=== PATIENT | male | born 1990 | race Two or more races ===

== ENCOUNTER 2016-11-25 16:30 | Emergency (ER) | payer OTHER ==
--- NOTE | 2016-11-25 16:44 | ER Document Report ---
ED Medical Screen (RME) - General Stated Complaint: POSSIBLE STD Time seen by provider: 16:42 Mode of Arrival: Ambulatory Information source: Patient Notes: 26-year-old male presents to ED for STD check. States his partner techs to him today stated she was tested positive for chlamydia and was treated so he came in to be tested and treated. I have greeted and performed a rapid initial assessment of this patient. A comprehensive ED assessment and evaluation of the patient, analysis of test results and completion of medical decision making process will be conducted by an additional ED providers. TRAVEL OUTSIDE OF THE [place] IN LAST 30 DAYS: No - Related Data Allergies/Adverse Reactions: No Known Allergies Allergy (Verified 09/19/14 23:47) Past Medical History - Immunizations Hx Diphtheria, Pertussis, Tetanus Vaccination: Yes
[2016-11-25 17:14] LABS: APPEARANCE,URINE CLEAR; BILIRUBIN,URINE NEGATIVE (NEGATIVE); GLUCOSE, URINE NEGATIVE (NEGATIVE); KETONES,URINE NEGATIVE (NEGATIVE); LEUKOCYTE ESTERASE,URINE NEGATIVE (NEGATIVE); NITRITE,URINE NEGATIVE (NEGATIVE); PROTEIN,URINE NEGATIVE (NEGATIVE); URINE SPECIFIC GRAVITY 1.005; UROBILINOGEN,URINE NEGATIVE mg/dL (<2.0)
--- NOTE | 2016-11-25 18:09 | ER Document Report ---
ED General - General Chief Complaint: STD Exposure Stated Complaint: POSSIBLE STD Mode of Arrival: Ambulatory Notes: 26-year-old male here with request for STD check. He states that his girlfriend text him earlier today and told him that she tested positive for chlamydia. The patient denies having any penile discharge dysuria frequency hesitancy hematuria abdominal pain. He states that he has not had any other sexual partners since being with his current girlfriend. He denies ever having any STDs in the past. TRAVEL OUTSIDE OF THE [place] IN LAST 30 DAYS: No - Related Data Allergies/Adverse Reactions: No Known Allergies Allergy (Verified 11/25/16 16:44) Past Medical History - General Information source: Patient - Social History Smoking Status: Never Smoker Chew tobacco use (# tins/day): No Frequency of alcohol use: None Drug Abuse: None Family History: Reviewed & Not Pertinent Patient has suicidal ideation: No Patient has homicidal ideation: No Renal/ Medical History: Denies: Hx Peritoneal Dialysis - Immunizations Hx Diphtheria, Pertussis, Tetanus Vaccination: Yes Review of Systems - Review of Systems Notes: See history of present illness for pertinent positive review of systems; otherwise all review of systems have been reviewed and are negative Physical Exam - Vital signs Vitals: Temp Pulse Resp BP Pulse Ox 97.8 F 63 16 128/86 H 100 11/25/16 16:35 11/25/16 16:35 11/25/16 16:35 11/25/16 16:35 11/25/16 16:35 - Notes Notes: PHYSICAL EXAMINATION: GENERAL: Well-appearing and in no acute distress. HEAD: Atraumatic, normocephalic. EYES: Pupils equal round and reactive to light, extraocular movements intact, sclera anicteric, conjunctiva are normal. ENT: nares patent, oropharynx clear without exudates. Moist mucous membranes. NECK: Normal range of motion, supple without lymphadenopathy LUNGS: CTAB and equal. No wheezes rales or rhonchi. HEART: Regular rate and rhythm without murmurs ABDOMEN: Soft, no tenderness. No guarding, no rebound GENITOURINARY: No lesions visualized EXTREMITIES: Normal range of motion, no pitting edema. No cyanosis. NEUROLOGICAL: Cranial nerves grossly intact. Normal sensory/motor exams. PSYCH: Normal mood, normal affect. SKIN: Warm, Dry, normal turgor, no rashes or lesions noted Course - Re-evaluation Re-evalutation: 11/25/16 18:09 MEDICAL DECISION MAKING: Patient would like to go ahead be treated and does not want to wait for results Will go ahead and treat the patient with Rocephin and azithromycin I've instructed the patient to warm any of his sexual partners of possible STD infection Patient understands and agrees to the plan of care - Vital Signs Vital signs: Temp Pulse Resp BP Pulse Ox 97.8 F 63 16 128/86 H 100 11/25/16 16:35 11/25/16 16:35 11/25/16 16:35 11/25/16 16:35 11/25/16 16:35 Discharge - Discharge Clinical Impression: Sexually transmitted disease exposure Condition: Good Disposition: HOME, SELF-CARE Additional Instructions: You were seen in the emergency department at [facility]. You received treatment for presumed gonorrhea and chlamydia. Your results will take some time. If they are positive he will receive a call. Please followup with your primary physician in the next few days for further management/ evaluation. Please return to the emergency department for worsening of symptoms or any symptom that you deem to be concerning or life-threatening. Thank you for allowing us to be part of your care.
[2016-11-25] MEDS ORDERED: AZITHROMYCIN 250 MG TABLET PO ONE (18:33)
[2016-11-25] MEDS ORDERED: CEFTRIAXONE INJ 250 MG VIAL IM ONE (18:33)
[2016-11-25 18:37] LABS: CHLAM PCR DETECTED (NOT DETECT)
[2016-11-25 19:06] VITALS: BP 103/77
== END 2016-11-25 19:06 | disposition home or self-care (01) ==
LOC: ER 16:30
DX: Z20.2 Contact with and (suspected) exposure to infections with a predominantly sexual mode of transmission (principal)
CPT/HCPCS: 99283; 96372; 81001; 87491; 87591; J0696